=== PATIENT | female | born 1975 | race Caucasian/White ===

== ENCOUNTER 2022-07-31 09:57 | Outpatient (CLI) | payer MEDICARE, MEDICAID, SELFPAY ==
--- NOTE | 2022-07-31 10:36 | MM_ITS ---
WS: [id number] Bilateral screening 3D tomosynthesis digital mammogram, 07/31/2022 Clinical Data: SCREEN Comparison: None. Findings: The breast parenchymal pattern shows heterogeneous density. No spiculated masses or clustered calcifi cations are seen. There are no secondary signs of carcinoma. There are lymph nodes in the left axilla . MM/[place] [id number] Impression: 1. Negative bilateral mammogram unchanged. 2. Recommend annual screening mammograms. BIRADS: 1-Negative FOLLOW UP: 1 Year Follow-up The CAD credit report checker was used.
== END 2022-07-31 09:58 | disposition home or self-care (01) ==
LOC: RAD 09:58
PROVIDERS: Family Provider Nurse Practitioner Family; Visit Provider Family Medicine
DX: Z12.31 Encounter for screening mammogram for malignant neoplasm of breast (principal)
CPT/HCPCS: 77063; 77067

== ENCOUNTER 2022-12-23 09:36 | Outpatient (CLI) | payer OTHER, SELFPAY ==
--- NOTE | 2022-12-23 10:13 | XR_ITS ---
WS: [id number] XR shoulder LT min 2V* [id number] REASON FOR EXAM: SHOULDER PAIN FINDINGS: No fracture or focal bone lesion. Acromioclavicular and glenohumeral joint spaces are intact and relatively well-preserved. No soft tissue abnormality. XR/XR shoulder LT min 2V* [id number] IMPRESSION: No significant abnormality.
--- NOTE | 2022-12-23 10:13 | XR_ITS ---
WS: [id number] XR cervical spine 3V* [id number] REASON FOR EXAM: SHOULDER PAIN FINDINGS: Straightening of the normal lordosis of the cervical spine. Normal odontoid. No significant focal abnormality of the vertebral bodies. Mild narrowing of the C4-C5 and C5-C6 disc space. Moderate anterior and uncinate osteophytes at C5-C6 . Mild degenerative changes in the facet joints C5-C7. No significant listhesis. XR/XR cervical spine 3V* [id number] IMPRESSION: Degenerative spondylosis as above.
== END 2022-12-23 09:37 | disposition home or self-care (01) ==
PROVIDERS: PCP Family Medicine; Visit Provider Dermatology
DX: Z02.71 Encounter for disability determination (principal); M25.512 Pain in left shoulder; M47.812 Spondylosis without myelopathy or radiculopathy, cervical region; M48.02 Spinal stenosis, cervical region
CPT/HCPCS: 72040; 73030

== ENCOUNTER 2023-01-10 08:22 | Outpatient (CLI) | payer MEDICARE, MEDICAID, SELFPAY ==
--- NOTE | 2023-01-10 08:31 | US_ITS ---
WS: [id number] Complete ABDOMINAL ULTRASOUND HISTORY: POSTPRANDIAL NAUSEA COMPARISON: None available. Liver: 16.0 cm in length. Normal size liver and echogenicity. No bile duct dilatation or mass. Portal Vein: Normal hepatopetal flow with monophasic waveform. Gallbladder: Normally distended gallbladder with no stones or wall thickening. CBD: 0.3 cm Pancreas: Normal size and echogenicity. Right kidney: 11.5 cm x 5.3 x 5.0 cm. Cortex:0.6 cm. Normal size and echogenicity. No hydronephrosis or mass. Left kidney: 10.4 cm x 5.7 cm x 5.7 cm. Cortex: 0.8 cm. No mass, cortical thickening or hydronephrosis. Spleen: Normal size and echogenicity. Aorta and IVC: Unremarkable abdominal aorta and IVC. US/US abdomen complete* [id number] Impression: Normal complete abdomen ultrasound.
== END 2023-01-10 08:23 | disposition home or self-care (01) ==
LOC: RAD 08:27
PROVIDERS: PCP Family Medicine; Visit Provider Family Medicine
DX: R11.0 Nausea (principal)
CPT/HCPCS: 76700

== ENCOUNTER → 2024-11-08 15:11 | Outpatient (BNVA) | payer MEDICAID, SELFPAY | PROVIDERS: PCP Family Medicine; Visit Provider Emergency Medicine | DX: R50.9 Fever, unspecified (principal); J10.1 Influenza due to other identified influenza virus with other respiratory manifestations | CPT/HCPCS: 87400 ==

== ENCOUNTER 2025-04-06 08:25 | Outpatient (CLI) | payer MEDICAID, SELFPAY ==
--- NOTE | 2025-04-06 08:27 | MM_ITS ---
WS: [id number] VIEWS: MLO and CC views both breasts. 3D digital tomosynthesis is also included in this exam. Comparison made with prior exam of 07/31/2022. Findings: The breasts are heterogeneously dense, which may obscure small masses. No sign of suspicious mass, tumor calcification or architectural distortion. MM/MM scr BI tomosynthesis [id number] Impression: BI-RADS: 2 - Benign FOLLOW-UP: 1 Year Follow-up This mammogram was also analyzed by the Computer Aided Detection System R2 [employer].
== END 2025-04-06 08:26 | disposition home or self-care (01) ==
PROVIDERS: PCP Family Medicine; Visit Provider Nurse Practitioner Family
DX: Z12.31 Encounter for screening mammogram for malignant neoplasm of breast (principal); R92.333 Mammographic heterogeneous density, bilateral breasts
CPT/HCPCS: 77063; 77067